=== PATIENT | female | born 1975 | race Caucasian/White ===

== ENCOUNTER 2016-03-26 17:03 | Inpatient (IN) | payer MEDICAID ==
[~2016-03-26] VITALS: Ht 170.2 cm; Wt 52.6 kg
[2016-03-26] VITALS (9 sets, daily range): BP systolic 110–122; RESP 14–26; TEMP 98.9; BMI 18.2
[2016-03-26] MEDS ORDERED: FENTANYL DRIP 50 ML IV PRN (19:15)
[2016-03-26] MEDS ORDERED: PROPOFOL 100 ML 100 ML IV PRN (19:15)
[2016-03-26] MEDS ORDERED: SALINE FLUSH 10 ML FLUSH PRN (20:20)
[2016-03-26] MEDS ORDERED: DUONEB INH PRN (20:20)
[2016-03-26] MEDS ORDERED: DEXTROSE 5% SALINE 0.45% 1,000 ML IV SCH (20:30)
[2016-03-26] MEDS ORDERED: FILL PIGGYBACK IV ONE (23:35)
[2016-03-26] MEDS ORDERED: POTASSIUM CHLORIDE IV ONE (23:35)
[2016-03-27] VITALS (33 sets, daily range): BP systolic 88–131; RESP 12–25; TEMP 98.4–98.8
[2016-03-27] MEDS: POTASSIUM CHLORIDE PREMIX 10 MEQ in PART FILL PIGGYBACK 1 EA IV SCH ×2 (00:16→01:27)
[2016-03-27] MEDS ORDERED: KCL 20 MEQ/15 ML UDC NG ONE (05:05)
[2016-03-27] MEDS: POTASSIUM CHLORIDE PREMIX 50 ML IV SCH ×2 (05:26→06:10)
[2016-03-27] MEDS: LACT RINGERS 1,000 ML IV SCH ×2 (05:26→18:15)
[2016-03-27] MEDS: SODIUM CHLORIDE 0.9% FLUSH BAG 500 ML IV SCH (06:00)
[2016-03-27] MEDS: PANTOPRAZOLE 40 MG VIAL IV SCH (09:14)
[2016-03-27] MEDS: SALINE FLUSH 10 ML FLUSH SCH ×2 (09:14→20:02)
[2016-03-27] MEDS ORDERED: POTASSIUM PHOSPHATE 30 MMOL in SODIUM CHLORIDE 0.9% 250 ML IV ONE (09:15)
[2016-03-27] MEDS: NICOTINE 21 MG/24 HR TRANSDERM SCH (11:57)
[2016-03-27] MEDS ORDERED: ACETAMINOPHEN 325 MG TAB PO PRN (20:00)
[2016-03-27] MEDS ORDERED: ACETAMINOPHEN 325 MG TAB ONE (20:00)
[2016-03-28] VITALS (14 sets, daily range): BP systolic 92–141; RESP 13–30; TEMP 98.3–98.5
[2016-03-28] MEDS: SODIUM CHLORIDE 0.9% FLUSH BAG 500 ML IV SCH (05:20)
[2016-03-28] MEDS: SALINE FLUSH 10 ML FLUSH SCH (08:00)
[2016-03-28] MEDS: PANTOPRAZOLE 40 MG VIAL IV SCH (09:00)
[2016-03-28] MEDS: NICOTINE 21 MG/24 HR TRANSDERM SCH (09:00)
== END 2016-03-28 12:46 | disposition home or self-care (01) | DRG 917 ==
LOC: ENRESERVDT → ENRESERVTM → ENPENDDIS 19:37 → EDBD 19:37 → CCU 19:37
PROVIDERS: ADMIT Family Medicine; ATTEND Family Medicine
PROC: 5A1935Z Respiratory Ventilation, Less than 24 Consecutive Hours (ICD-10-PCS; principal; 2016-03-26)
DX: T43.591A Poisoning by other antipsychotics and neuroleptics, accidental (unintentional), initial encounter (principal); J96.01 Acute respiratory failure with hypoxia; G92 Toxic encephalopathy; T45.0X1A Poisoning by antiallergic and antiemetic drugs, accidental (unintentional), initial encounter; Y92.009 Unspecified place in unspecified non-institutional (private) residence as the place of occurrence of the external cause; E87.6 Hypokalemia; E83.42 Hypomagnesemia; R10.9 Unspecified abdominal pain; R94.8 Abnormal results of function studies of other organs and systems; F15.10 Other stimulant abuse, uncomplicated; F11.10 Opioid abuse, uncomplicated; F19.10 Other psychoactive substance abuse, uncomplicated
CPT/HCPCS: 71010; 80053; 80074; 82550; 82553; 83735; 83880; 84100; 84132; 84439; 84443; 84484; 85025; 85610; 85652; 85730; 86141; 87040; 87389; 93005; 94002; 94003; 94799; 99291